=== PATIENT | male | born 1980 | race Asian ===

== ENCOUNTER 2021-01-25 22:11 | Emergency (ER) | payer MEDICAID ==
[~2021-01-25] VITALS: Ht 172.7 cm; Wt 61.4 kg
[2021-01-25] MEDS ORDERED: PERTUSS(ACELL),DIPH,TET VAC/PF 0.5 ML SYRINGE IM. ONE (22:30)
[2021-01-25] MEDS ORDERED: LIDOCAINE 2%/EPI 1:200,000/PF 20 ML VIAL ID ONE (22:30)
[2021-01-25] MEDS ORDERED: SODIUM CHLORIDE 0.9% 1,000 ML IV ONE (22:30)
[2021-01-25] MEDS ORDERED: MORPHINE SULFATE 4 MG/ML SYRINGE IVP ONE (22:30)
[2021-01-25 23:25] LABS: BASOPHILS % (AUTO) 0.5 % (0.0-2.0); EOSINOPHILS % (AUTO) 2.8 % (1.0-6.0); HEMATOCRIT 45.1 % (41-53); HEMOGLOBIN 15.3 g/dL (13.5-17.5); LYMPHOCYTES # (AUTO) 2.4 K/uL (1.0-4.8); LYMPHOCYTES % (AUTO) 35.3 % (22.0-44.0); MEAN CORPUSCULAR HEMOGLOBIN 35.4 pg (26.0-34.0); MEAN CORPUSCULAR HGB CONC 33.9 G/dL (31.0-37.0); MEAN CORPUSCULAR VOLUME 104 fL (80-100); MONOCYTES # (AUTO) 0.5 K/uL (0.1-1.0); MONOCYTES % (AUTO) 7.1 % (2.0-9.0); NEUTROPHILS # (AUTO) 3.8 K/uL (1.8-7.7); NEUTROPHILS % (AUTO) 54.3 % (40.0-70.0); PLATELET COUNT (AUTO) 235 K/uL (150-450); RED BLOOD CELL COUNT(AUTO) 4.32 MIL/uL (4.50-5.90)
[2021-01-25] MEDS ORDERED: AMPICILLIN SODIUM/SULBACTAM NA 1.5 GM in SODIUM CHLORIDE 0.9% 50 ML IV ONE (23:30)
[2021-01-25 23:34] LABS: ANION GAP 16 mmol/L (8-16); CALCIUM, TOTAL 9.2 mg/dL (8.8-10.5); CARBON DIOXIDE 21 mmol/L (22-29); CHLORIDE 102 mmol/L (98-107); CREATININE 0.99 mg/dL (0.60-1.30); GLOMERULAR FILTR. RATE CALC > 60 mL/min (>60); GLUCOSE,RANDOM 113 mg/dL (70-110); POTASSIUM 3.5 mmol/L (3.5-5.1); SODIUM SERUM 139 mmol/L (136-145); UREA NITROGEN, BLOOD 10 mg/dL (7-18)
[2021-01-25 23:59] LABS: ALANINE AMINOTRANSFERASE 51 U/L (12-78); ALBUMIN 4.2 g/dL (3.4-5.0); ALKALINE PHOSPHATASE 64 U/L (46-116); ASPARTATE AMINOTRANSFERASE 33 U/L (15-37); BILIRUBIN,TOTAL 0.4 mg/dL (0.1-1.0); CREATINE KINASE, TOTAL ONLY 169 U/L (39-308); TOTAL PROTEIN, SERUM 7.4 g/dL (6.4-8.2)
[2021-01-26 00:26] LABS: LACTIC ACID 3.1 mmol/L (0.4-2.0)
[2021-01-26] MEDS ORDERED: MORPHINE SULFATE 4 MG/ML SYRINGE IVP ONE (04:15)
[2021-01-26] MEDS ORDERED: KETOROLAC TROMETHAMINE 30 MG/ML VIAL IVP ONE (04:15)
[2021-01-26] MEDS ORDERED: SODIUM CHLORIDE 0.9% 1,000 ML IV ONE (04:15)
[2021-01-26 05:44] VITALS: BP 100/55
== END 2021-01-26 06:54 | disposition home or self-care (01) ==
LOC: EMS 22:18
DX: S02.40DA Maxillary fracture, left side, initial encounter for closed fracture (principal); S41.111A Laceration without foreign body of right upper arm, initial encounter; S61.412A Laceration without foreign body of left hand, initial encounter; R91.1 Solitary pulmonary nodule; F12.90 Cannabis use, unspecified, uncomplicated; S51.012A Laceration without foreign body of left elbow, initial encounter; Y04.0XXA Assault by unarmed brawl or fight, initial encounter; Y93.89 Activity, other specified; Y92.89 Other specified places as the place of occurrence of the external cause; Y99.8 Other external cause status
CPT/HCPCS: 12004; 36415; 70450; 70486; 71045; 72125; 73060; 73090; 73130 ×2; 80053; 82550; 83605; 84484; 85025; 86850; 86900; 86901; 90471; 90715; 93005; 96361; 96365; 96375 ×2; 96376; 99285; G0480; J0295; J1885; J2270 ×2; J7030 ×2; J7050; 12001

== ENCOUNTER 2021-02-05 13:57 | Emergency (ER) | payer MEDICAID ==
[~2021-02-05] VITALS: Ht 172.7 cm; Wt 63.6 kg
[2021-02-05] MEDS ORDERED: AMOX500C2 PO (14:05)
[2021-02-05 14:40] VITALS: BP 98/64
== END 2021-02-05 14:49 | disposition home or self-care (01) ==
LOC: EMS 14:05
DX: S61.412D Laceration without foreign body of left hand, subsequent encounter (principal); R91.1 Solitary pulmonary nodule; Z48.02 Encounter for removal of sutures; W45.8XXD Other foreign body or object entering through skin, subsequent encounter
CPT/HCPCS: 99282; Z7502